=== PATIENT | female | born 1950 | race Caucasian/White ===

== ENCOUNTER 2018-03-18 16:14 | Emergency (ER) | payer OTHER, MEDICAID ==
--- NOTE | 2018-03-18 17:27 | ED Physician Chart ---
ED Chief Complaint/HPI - Patient Information Date Seen:: 03/18/18 Time Seen:: 17:00 Chief Complaint:: chest congestion Allergies:: Allergies Allergy/AdvReac Type Severity Reaction Status Date / Time iodine Allergy Verified 03/18/18 16:50 Vitals:: Vital Signs - 8 hr 03/18/18 16:43 Temp 97.6 F HR 80 RR 22 BP 154/86 O2 Sat % 97 Review:: Nurse's Note Reviewed, Transfer documents Reviewed ED Past Medical History - Past Medical History Obtainable: Yes Past Medical History: DM, CAD, Asthma/COPD, Dyslipidemia Family History: None Social History: Non Smoker, No Alcohol, No Drug Use, Care Facility Surgical History: None Psychiatricy History: Depression, Schizophrenia Family Medical History - Family Member Mother History Unknown: Yes ED Physical Exam - Physical Examination General/Constitutional: Awake, Well-developed, well-nourished, Alert, No distress, GCS 15, Non-toxic appearing, Ambulatory Head: Atraumatic Eyes: Lids, conjuctiva normal, PERRL, EOMI Skin: Nl inspection, No rash, No skin lesions, No ecchymosis, Well hydrated, No lymphadenopathy ENMT: External ears, nose nl, Nasal exam nl, Lips, teeth, gums nl Neck: Nontender, Full ROM w/o pain, No JVD, No nuchal rigidity, No bruit, No mass, No stridor Respiratory: Nl effort/Exclusion, Clear to Auscultation, No Wheeze/Rhonchi/ Rales (bilateral rhonchi heard) Cardio Vascular: RRR, No murmur, gallop, rubs, NL S1 S2 GI: No tenderness/rebounding/guarding, No organomegaly, No hernia, Normal BS's, Nondistended, No mass/bruits, No McBurney tenderness : No CVA tenderness Extremities: No tenderness or effusion, Full ROM, normal strength in all extremities, No edema, Normal digits & nails Neuro/Psych: Alert/oriented, DTR's symmetric, Normal sensory exam, Normal motor strength, Judgement/insight normal, Mood normal, Normal gait, No focal deficits Misc: Normal back, No paraspinal tenderness ED Labs/Radiology/EKG Results - Lab Results Results: Abnormal Lab Results 03/18/18 03/18/18 03/18/18 16:30 16:30 16:30 WBC RBC Hgb Hct MCV MCH MCHC Differential RDW Plt Count MPV Add Manual Diff PT 16.6 H INR 1.64 H PTT (Actin FS) 44.6 H Sodium 137 Potassium 4.4 Chloride 97 L Carbon Dioxide 32.5 H Anion Gap 11.9 BUN 55 H Creatinine 1.7 H Est GFR ( Amer) 38.3 Est GFR (Non-Af Amer) 31.7 BUN/Creatinine Ratio 32.4 Glucose 259 H Calcium 9.4 Total Bilirubin 0.4 AST 21 ALT 14 Alkaline Phosphatase 62 Troponin I 0.05 Total Protein 7.3 Albumin 3.5 L Globulin 3.8 Albumin/Globulin Ratio 0.9 L TSH 03/18/18 03/18/18 16:30 16:30 WBC 10.9 H RBC 3.23 L Hgb 8.7 L Hct 26.9 L MCV 83.4 MCH 26.9 L MCHC Differential 32.3 RDW 16.2 Plt Count 199 MPV 11.2 Add Manual Diff YES PT INR PTT (Actin FS) Sodium Potassium Chloride Carbon Dioxide Anion Gap BUN Creatinine Est GFR ( Amer) Est GFR (Non-Af Amer) BUN/Creatinine Ratio Glucose Calcium Total Bilirubin AST ALT Alkaline Phosphatase Troponin I Total Protein Albumin Globulin Albumin/Globulin Ratio TSH 1.10 - Radiology Results Results: chest x-ray = bilateral congestion noted and cardiomegaly - EKG Interpretations EKG Time:: 18:56 Rate & Rhythm: rate -=119, atrial fib [place]: left axis ED Assessment - Assessment General Assessment: acute respiratory distress ED Septic Shock - . Is Septic Shock (SBP<90, OR Lactate>4 mmol\L) present?: No - <6hrs of presentation: Vital Signs: Vital Signs - 8 hr 03/18/18 16:43 Temp 97.6 F HR 80 RR 22 BP 154/86 O2 Sat % 97 ED Reassessment (Disposition) - Reassessment Reassessment Condition:: Improved - Diagnosis Diagnosis:: acute bronchitis atrial fib - Aftercare/Follow up Instructions Notes:: bessiesfered to marielle fishncdanielle - Patient Disposition Discharge/Transfer:: Acute Care (other hosp) Transport Method:: ACLS Condition at Disposition:: Improved
[2018-03-18 17:33] LABS: INR 1.64 (0.5-1.4); PROTHROMBIN TIME (TEST) 16.6 SECONDS (9.5-11.5)
[2018-03-18 17:36] LABS: ALB/GLOB RATIO 0.9 (1.0-1.8); ALBUMIN 3.5 gm/dL (3.7-5.3); ANION GAP 11.9 (7.0-16.0); BILIRUBIN,TOTAL 0.4 mg/dL (0.3-1.0); CALCIUM SERUM 9.4 mg/dL (8.6-10.3); CARBON DIOXIDE 32.5 mEq/L (21.0-31.0); CREATININE - SERUM 1.7 mg/dL (0.6-1.2); GFR AFRICAN-AMERICAN 38.3 ml/min (>90); GFR NON AFRICAN-AMERICAN 31.7 ml/min; POTASSIUM SERUM 4.4 mEq/L (3.5-5.1); TOTAL PROTEIN,SERUM 7.3 gm/dL (6.0-8.3)
[2018-03-18] MEDS ORDERED: Albuterol/Ipratropium Neb 3 ML AERS HHN ONE ×2 (18:33→18:39)
[2018-03-18 18:50] LABS: HEMATOCRIT 26.9 % (41.0-60); HEMOGLOBIN 8.7 gm/dL (12-16); MEAN CELL VOLUME 83.4 fl (81-100); MEAN CORPUSCULAR HEMOGLOBIN 26.9 pg (27.0-31.0); MEAN CORPUSCULAR HGB CONC 32.3 pg (28.0-36.0); MEAN PLATELET VOLUME 11.2 fl; PLATELET COUNT 199 Th/cmm (150-400); RED BLOOD COUNT 3.23 Mil/cmm (3.80-5.20); RED CELL DISTRIBUTION WIDTH 16.2 % (11.5-20.0); WHITE BLOOD COUNT 10.9 Th/cmm (4.8-10.8)
[2018-03-18 19:36] LABS: BAND NEUTROPHILE 0 % (0-10); BASOPHIL 0 % (0-3); EOSINOPHIL 1 % (0-5); LYMPHOCYTE 8 % (20-50); NEUTROPHILS 84 % (40-80)
[2018-03-18 19:37] LABS: MONOCYTE 7 % (2-10)
--- NOTE | 2018-03-19 10:20 | Diagnostic Imaging Report ---
Portable chest x-ray HISTORY: Shortness of breath The heart is enlarged. There is a degree of pulmonary vascular redistribution suggesting cardiac decompensation the interstitial lung markings. IMPRESSION: 1. Cardiomegaly along with changes suggesting a mild degree of congestive heart failure. Clinical correlation is needed.
== END 2018-03-18 21:00 | disposition short-term general hospital (02) ==
LOC: ER 16:14
DX: J20.9 Acute bronchitis, unspecified (principal); I48.91 Unspecified atrial fibrillation; I25.10 Atherosclerotic heart disease of native coronary artery without angina pectoris; E11.9 Type 2 diabetes mellitus without complications; J44.9 Chronic obstructive pulmonary disease, unspecified; E78.5 Hyperlipidemia, unspecified; F32.9 Major depressive disorder, single episode, unspecified; F20.9 Schizophrenia, unspecified; Z91.041 Radiographic dye allergy status
CPT/HCPCS: 99285; 96372; 94640 ×2; 93005; 71045; 84484; 36415; 83605; 84443; 85007; 85025; 85610; 85730; 83036; 80053; 80162; 87040 ×2; J0696; Z7610